=== PATIENT | female | born 1995 | race Caucasian/White ===

== ENCOUNTER → 2022-03-05 | Outpatient (CLI) | payer BC | LOC: DIA.ED 07:51 | DX: O24.419 Gestational diabetes mellitus in pregnancy, unspecified control (principal) | CPT/HCPCS: G0108 ==

== ENCOUNTER → 2022-04-14 | Outpatient (CLI) | payer BC | LOC: DIA.ED 07:52 | DX: O24.419 Gestational diabetes mellitus in pregnancy, unspecified control (principal) | CPT/HCPCS: G0108 ==

== ENCOUNTER 2022-05-03 13:41 | Outpatient (CLI) | payer BC ==
[~2022-05-03] VITALS: Ht 162.6 cm; Wt 82.7 kg
[2022-05-03 13:55] VITALS: BP 137/81; PULSE 75; TEMP 98.1
[2022-05-03] MEDS ORDERED: PRENATAL FORMU1 EAC3 PO (14:03)
[2022-05-03 14:15] VITALS: BP 131/83; PULSE 75
--- NOTE | 2022-05-03 14:25 | NUR ---
1356 PATIENT HERE FROM HOME WITH COMPLAINTS IOF RIGHT SIDE PAIN THAT WAS CONSTANT FOR 45 MIN. THIS ALSO HAPPENED YESTERDAY ONE TIME WITH OCCASIONAL CONTRCTIONS LAST EVENING. EFM ON FHT 125 BABY VERY ACTIVE. CONTRACTIONS IRREGULAR AND PALPATE MILD. PATIENT DENIES FEELING THEM, JUST FEELS BABY MOVING. DENIES AND PROBLEMS WITH URINATION. HAS NOT BEEN SICK RECENTLY. SVE 50/-3. DR CHEUNG CALLED AND UPDATED ON ALL ABOVE INFORMATION. ORDERS TO MONITOR FOR HOUR IF NO CHANGES MAY SEND HOME.
[2022-05-03 14:50] VITALS: BP 115/72; PULSE 62
--- NOTE | 2022-05-03 14:54 | NUR ---
1415 BASELINE CHANGE TO 110 BABY VERY ACTIVE. PATIENT DENIES PAIN AT THIS TIME.
--- NOTE | 2022-05-03 14:56 | NUR ---
0960 NO CHANGES NOTED. NO PAIN NOTED BY PATIENT. BABY VERYACTIVE. ORDERS TO DIMISS TO HOME PER DR CHEUNG. ALL DISCHARGE INSTRUCTIONS GIVEN TO PATIENT AND , WITH VERBAL UNDERSTANDING NOTED. DENIES NEEDS
== END 2022-05-03 14:59 | disposition home or self-care (01) ==
LOC: LDRO 13:41
DX: O26.893 Other specified pregnancy related conditions, third trimester (principal); R10.9 Unspecified abdominal pain; Z3A.38 38 weeks gestation of pregnancy

== ENCOUNTER 2022-05-20 06:15 | Inpatient (IN) | payer BC ==
[2022-05-20] VITALS (61 sets, daily range): BP systolic 109–162; BP diastolic 54–91; PULSE 55–115; TEMP 97.6–98.8
[~2022-05-20] VITALS: Ht 165.1 cm; Wt 83.6 kg
[~2022-05-20 06:15] MED LIST: PRENATAL FORMU1 EAC3 PO
--- NOTE | 2022-05-20 06:20 | NUR ---
0620 pt ambulatory to unit with support person. Pt. changed into gown, lying in bed comfortably. Pt reports no ctx, no leaking of fluid, and positive movement. EFM tracing category 1 at this time. Pt. updated on plan of care and consents signed. Will continue to monitor.
[2022-05-20 07:32] LABS: BASO # 0.1 K/mm3 (0.0-0.2); BASO % 0.7 % (0.0-2.0); EOS # 0.1 K/mm3 (0.0-0.7); EOS % 0.9 % (0.0-4.0); GRAN # 4.8 K/mm3 (1.4-6.5); GRAN % 63.8 % (42.2-75.2); HEMOGLOBIN 12.3 g/dl (12.5-16.0); LYMPH # 1.9 K/mm3 (1.2-3.4); LYMPH % 25.9 % (20.0-51.0); MEAN CELL VOLUME 81 fl (80.0-100.0); MEAN CORPUSCULAR HEMOGLOBIN 28 pg (27-31); MEAN CORPUSCULAR HGB CONC 34 g/dl (33.0-37.0); MEAN PLATELET VOLUME 13.7 fl (7.4-10.4); MONO # 0.6 K/mm3 (0.1-0.6); MONO % 8.4 % (1.7-9.3); PLATELET COUNT 106 K/mm3 (130-400); RED BLOOD COUNT 4.45 M/mm3 (4.10-5.30); REDCELL DISTRIBUTION WIDTH-CV 13.4 % (11.5-14.5)
[2022-05-20 07:35] LABS: HEMATOCRIT 36.1 % (37.0-47.0)
--- NOTE | 2022-05-20 07:46 | NUR ---
0746 PT UP TO BATHROOM. UNABLE TO TRACE EFM AT THIS TIME. CATEGORY 1 EFM TRACING BEFORE AND AFTER BATHROOM.
--- NOTE | 2022-05-20 08:28 | NUR ---
0828 PT UP TO BATHROOM. UNABLE TO TRACE EFM AT THIS TIME. EFM TRACING CATEGORY 1 BEFORE AND AFTER BATHROOM.
--- NOTE | 2022-05-20 08:32 | NUR ---
0832 DR. CHEUNG AT BEDSIDE. SVE 1-2//-[address] CHEUNG. AROM COMPLETED AT THIS TIME. CLEAR FLUID NOTED UPON RUPTURE. EFM TRACING CATEGORY 1. PT COMFORTABLE. VERBAL ORDER FROM DR. CHEUNG TO D/C BLOOD SUGAR CHECKS AT THIS TIME. PT INITIAL BLOOD SUGAR 77 AND GDM HAS BEEN WELL MANAGED BY PT. WILL CONTINUE TO MONITOR.
--- NOTE | 2022-05-20 11:10 | NUR ---
1110 PT SITTING UP ON SIDE OF BED, BOLUS RUNNING, EFM TRACING CATEGORY 1. JEMAL AT BEDSIDE FOR EPIDURAL PLACEMENT. VITAL SIGNS STABLE. 1115 SINGLE SHOT ADMINISTERED BY MATHEW JOAQUIN. PT TOLERATED WELL.
--- NOTE | 2022-05-20 16:22 | NUR ---
RECURRENT VARIABLE DECELERATIONS INTO THE 60'S. SVE COMPLETE/-1. WILL BEGIN PREPPING ROOM AND PT FOR DELIVERY. NOTIFIED. SEE PHYSICIAN NOTIFICATIONS FOR PHYSICIAN PHONE UPDATES.
--- NOTE | 2022-05-20 17:00 | NUR ---
JEMAL [employer] LEADER AT BEDSIDE PER REQUEST TO REDO EPIDURAL. CURRENT EPIDURAL REMOVED, PER JEMAL "THIS EPIDURAL IS NO LONGER IN, I WILL GIVE HER AN INTRATHECAL DOSE." CURRENT EPIDURAL REMOVED PER JEMAL, AND PT ASSISTED TO SITTING POSITION ON EDGE OF BED FOR PAIN CONTROL DOSING. 1708: INTRATHECAL DOSE PER JEMAL CARMONA. PT TOLERATED PROCEDURE WELL. VITAL SIGNS STABLE. LR BOLUS INFUSING.
--- NOTE | 2022-05-20 17:21 | NUR ---
AT BEDSIDE. SVE COMPLETE. VORB TO CONTINUE PUSHING AND INCREASE PITOCIN PER PROTOCOL. DISCUSSES RISK VS BENEFT OF VACUUM DELIVERY VS. CSECTION IF HEART TONES CONTINUE TO DROP AND STAY DOWN. PT AGREEABLE TO VACUUM DELIVERY IF NEEDED FOR BABY SAFETY. WILL CONTINUE WITH PUSHING AND CLOSE MONITOR OF FHT. REMAINS AT BEDSIDE THROUGH PUSHING EFFORTS
--- NOTE | 2022-05-20 18:05 | NUR ---
REQUESTED TO BEDSIDE FOR DELIVERY
--- NOTE | 2022-05-20 18:09 | NUR ---
180 VIABLE MALE INFANT BORN VIA DELIVERED BY DR. CHEUNG. SECOND DEGREE PERINEAL TEAR AND NCX2 NOTED ON DELIVERY. DRIED AND STIMULATED THEN PLACED ON MOMS CHEST. CARE ASSUMED BY PATTI RN, CORD CLAMPED X2, FOB CUT CORD, CORD BLOOD DRAWN. 1811 OF PLACENTA AT THIS TIME. PITOCIN BOLUS INFUSING PER PROTOCOL. DR. CHEUNG TO BEGIN REPAIR OF 2ND DEGREE PERINEAL LACERATION. BLEEDING CONTROLLED, FUNDUS FIRM AT UMBILICUS WITH MASSAGE. WILL CONTINUE WITH CARES PER PROTOCOL.
--- NOTE | 2022-05-20 18:30 | NUR ---
REPORT TO JAVIER CASTILLO AT THIS TIME.
[2022-05-21 05:16] VITALS: BP 124/79; PULSE 80; TEMP 97.8
--- NOTE | 2022-05-21 06:15 | NUR ---
0615 THIS RN TOOK OVER CARE. AT BEDSIDE, UPDATED WHITEBOARD, ASSESSED AND VITAL SIGNS COMPLETED. MOM DID NOT TAKE MEDICATION THROUGH THE NIGHT AND REQUESTS TYLENOL AT 0800. UPDATED ON PLAN OF CARE FOR MOM AND BABY AT THIS TIME. WILL CONTINUE TO MONITOR.
[2022-05-21] MEDS ORDERED: MOTRIN 800800 MG/TAB PO (09:13)
--- NOTE | 2022-05-21 09:47 | NUR ---
Initial visit; Patient thanked Form Coverer for looking in on her and offering Congratulations and God's blessings for the of her son. Form Coverer thanked patient for choosing [facility] and was happy to hear this has been a good experience for patient.
[2022-05-21 17:00] VITALS: BP 129/90; PULSE 79; TEMP 98.1
[2022-05-21 21:20] VITALS: BP 131/85; PULSE 71; TEMP 98.1
--- NOTE | 2022-05-21 22:30 | NUR ---
Assumed care at this time. Resting in room with support person and at bedside.
[2022-05-22 07:21] VITALS: BP 125/77; PULSE 73; TEMP 99.2
== END 2022-05-22 13:50 | disposition home or self-care (01) | DRG 806 ==
LOC: OB 06:15 → LDR 06:15 → OB 20:45
PROVIDERS: ADMIT Obstetrics & Gynecology
PROC: 10E0XZZ Delivery of Products of Conception, External Approach (ICD-10-PCS; principal; 2022-05-20)
PROC: 0KQM0ZZ Repair Perineum Muscle, Open Approach (ICD-10-PCS; 2022-05-20)
PROC: 10907ZC Drainage of Amniotic Fluid, Therapeutic from Products of Conception, Via Natural or Artificial Opening (ICD-10-PCS; 2022-05-20)
DX: O48.0 Post-term pregnancy (principal); O99.12 Other diseases of the blood and blood-forming organs and certain disorders involving the immune mechanism complicating childbirth; Z37.0 Single live birth; O69.81X0 Labor and delivery complicated by cord around neck, without compression, not applicable or unspecified; O70.1 Second degree perineal laceration during delivery; Z3A.40 40 weeks gestation of pregnancy; D69.6 Thrombocytopenia, unspecified; O24.420 Gestational diabetes mellitus in childbirth, diet controlled; Z23 Encounter for immunization
CPT/HCPCS: J2405; J2590; J2795; J7120